=== PATIENT | male | born 1960 | race Caucasian/White ===

== ENCOUNTER 2020-10-16 07:59 | Outpatient (CLI) | payer BC | END 2020-10-16 08:00 | disposition home or self-care (01) | LOC: TBSIIMAG 07:59 | PROVIDERS: ATTEND Nurse Practitioner Family | DX: M25.512 Pain in left shoulder (principal); G89.29 Other chronic pain; M75.112 Incomplete rotator cuff tear or rupture of left shoulder, not specified as traumatic ==

== ENCOUNTER 2020-11-27 06:46 | Day surgery (SDC) | payer BC ==
[2020-11-25 14:21] VITALS: BMI 31.8
[2020-11-27] MEDS ORDERED: Midazolam HCl 2 mg/2 ml Vial ONE (07:56)
[2020-11-27] MEDS ORDERED: Fentanyl 100 MCG/2 ML VIAL ONE ×2 (07:56→08:51)
[2020-11-27] MEDS ORDERED: Fentanyl 100 MCG/2 ML VIAL IV PRN ×2 (08:24→08:30)
[2020-11-27] MEDS ORDERED: traMADol HCl 50 MG TAB PO PRN ×4 (08:30)
[2020-11-27] MEDS ORDERED: Ondansetron PF 4 MG/2 ML Vial IVP PRN ×2 (08:30)
[2020-11-27] MEDS ORDERED: Promethazine HCl 25 MG/ML VIAL IM PRN ×2 (08:30)
[2020-11-27] MEDS ORDERED: Ropivacaine 0.2% 550 ML 550 ML NERVE BLCK SCH ×2 (08:30)
[2020-11-27] MEDS ORDERED: Acetaminophen 325 MG TAB PO PRN (08:30)
[2020-11-27] MEDS ORDERED: HYDROcodone/Acetaminophen 10/325 mg Tablet PO PRN ×4 (08:30)
[2020-11-27] MEDS ORDERED: Zolpidem Tartrate 5 MG TAB PO PRN ×2 (08:30)
[2020-11-27] MEDS ORDERED: Lidocaine 1% w/Epinephrine 1:100K 20 ML VIAL ONE (09:13)
[2020-11-27] MEDS ORDERED: PHENYLEPHRINE-NS 100 MCG/ML 10 ML SYRINGE ONE (09:17)
[2020-11-27] MEDS ORDERED: PROPOFOL 200 MG/20 ML VIAL ONE (09:17)
[2020-11-27] MEDS ORDERED: Dexamethasone 20 MG/5 ML VIAL ONE (09:17)
[2020-11-27] MEDS ORDERED: Ropivacaine 0.5% HCl/PF (150 MG/30 ML VIAL) ONE (09:17)
[2020-11-27] MEDS ORDERED: ePHEDrine 50 MG/ML VIAL ONE (09:17)
[2020-11-27] MEDS ORDERED: Ondansetron PF 4 MG/2 ML Vial ONE (09:17)
[2020-11-27] MEDS ORDERED: Rocuronium Bromide 10 MG/ML (10ML VIAL) ONE (09:17)
[2020-11-27] MEDS ORDERED: Lidocaine 1% PF 5 ML VIAL ONE (09:17)
[2020-11-27] MEDS ORDERED: Glycopyrrolate 0.2 MG/ML 5 ML SYRINGE ONE (09:17)
[2020-11-27] MEDS ORDERED: Ropivacaine 2% HCl/PF (20 MG/10 ML VIAL) ONE (09:17)
[2020-11-27] MEDS ORDERED: Ketorolac Tromethamine 30 MG/ML VIAL IVP SCH ×2 (12:00)
== END 2020-11-27 13:00 | disposition home or self-care (01) ==
LOC: SDC 06:46
PROVIDERS: ATTEND Orthopaedic Surgery
PROC: 3E0T3BZ Introduction of Anesthetic Agent into Peripheral Nerves and Plexi, Percutaneous Approach (ICD-10-PCS; principal; 2020-11-27)
PROC: 0LS40ZZ Reposition Left Upper Arm Tendon, Open Approach (ICD-10-PCS; principal; 2020-11-27)
PROC: 0RNK4ZZ Release Left Shoulder Joint, Percutaneous Endoscopic Approach (ICD-10-PCS; principal; 2020-11-27)
PROC: 0LQ24ZZ Repair Left Shoulder Tendon, Percutaneous Endoscopic Approach (ICD-10-PCS; principal; 2020-11-27)
DX: M75.112 Incomplete rotator cuff tear or rupture of left shoulder, not specified as traumatic (principal); M25.812 Other specified joint disorders, left shoulder; S43.432A Superior glenoid labrum lesion of left shoulder, initial encounter; G47.33 Obstructive sleep apnea (adult) (pediatric); E78.00 Pure hypercholesterolemia, unspecified; Z79.899 Other long term (current) drug therapy; Z88.1 Allergy status to other antibiotic agents
CPT/HCPCS: A4306; C1713; J0690; J1100; J2250; J2405; J2704; J2795; J3010; J3490